=== PATIENT | female | born 1935 | race Caucasian/White ===

== ENCOUNTER 2016-08-12 14:25 | Emergency (ER) | payer OTHER, MEDICARE ==
[~2016-08-12] VITALS: Ht 170.2 cm; Wt 97.1 kg
[~2016-08-12 14:25] MED LIST: ADVAIR 100/501 DISK IH; AMIODARONE HCL200 MG PO; AMLODIPINE BESYL5 MG PO; ATENOLOL50 MG PO; ATORVASTATIN CA40 MG PO; CALCITRIOL0.25 MCG PO; CLONIDINE HCL0.2 MG PO; ELIQUIS2.5 MG PO; GLIMEPIRIDE1 MG PO; GLIMEPIRIDE2 MG PO; KEFLEX500 MG PO; PANTOPRAZOLE SO40 MG PO; TRAMADOL HCL50 MG PO
[2016-08-12 15:49] LABS: HEMATOCRIT 40.4 % (36.0-46.0); MCH 29.1 PG (29.0-34.0); MCHC 33.9 G/DL (30.0-36.0); MCV 85.8 FL (83-99); MEAN PLAT.VOLUME 10.5 uM^3 (9.5-12.4); PLATELET COUNT 185 K/uL (156-360); RBC DIS.WIDTH-CV 13.3 % (11.8-14.6); RBC DIS.WIDTH-SD 41.1 % (39-53); RED BLOOD COUNT 4.71 M/uL (3.80-5.20); WHITE BLOOD COUNT 12.4 K/uL (4.1-10.2)
[2016-08-12 16:28] LABS: ANION GAP 12 MEQ/L (2-14); CHLORIDE 104 MEQ/L (99-109); GFR ESTIMATE (CALCULATED) 38 mL/min/; GLUCOSE 207 mg/dL (70-99); POTASSIUM 4.7 MEQ/L (3.7-5.4); SAMPLE HEMOLYSIS CHECK 0; SAMPLE ICTERIC CHECK 0; SAMPLE LIPEMIA CHECK 0; SODIUM 143 MEQ/L (136-147); UREA NITROGEN (BUN) 36 mg/dL (9-23)
[2016-08-12] MEDS ORDERED: MELATONIN10 M4 SL (18:15)
[2016-08-12] MEDS ORDERED: ZANTAC150 MG PO (18:15)
[2016-08-12] MEDS ORDERED: VITAMIN C1000 M1 PO (18:16)
[2016-08-12] MEDS ORDERED: PREDNISOLONE SOD5 ML BOTH EYES (19:18)
[2016-08-12] MEDS ORDERED: NORCO 5/3251 TABLET PO (19:18)
[2016-08-12 19:51] VITALS: BP 164/68
== END 2016-08-12 19:52 | disposition home or self-care (01) ==
LOC: TRA 14:25 → EME 14:25 → TRA 19:52
PROVIDERS: Emergency Medicine
DX: S05.12XA Contusion of eyeball and orbital tissues, left eye, initial encounter (principal); S16.1XXA Strain of muscle, fascia and tendon at neck level, initial encounter; S00.12XA Contusion of left eyelid and periocular area, initial encounter; V47.5XXA Car driver injured in collision with fixed or stationary object in traffic accident, initial encounter; I10 Essential (primary) hypertension; E78.5 Hyperlipidemia, unspecified; E11.9 Type 2 diabetes mellitus without complications; Z79.01 Long term (current) use of anticoagulants; Z87.891 Personal history of nicotine dependence
CPT/HCPCS: 70450; 70480; 72125; 80048; 85027; 99281; 99283